=== PATIENT | male | born 1985 | race American Indian/Alaskan Native ===

== ENCOUNTER 2018-12-10 19:27 | Emergency (ER) | payer SELFPAY ==
[~2018-12-10] VITALS: Ht 172.7 cm; Wt 87.0 kg
[2018-12-10] MEDS ORDERED: D-ME473S8 MT (19:47)
[2018-12-10] MEDS ORDERED: AM500 PO (19:48)
[2018-12-10] MEDS ORDERED: LORA10TA7 PO (19:48)
[2018-12-10] MEDS ORDERED: PSEU-207 PO (19:48)
[2018-12-10] MEDS ORDERED: GUAI120017 PO (19:49)
[2018-12-10] MEDS ORDERED: IBUP-2029 PO (19:49)
[2018-12-10] MEDS ORDERED: ALBUTEROL (0.083%) 2.5MG/3ML NEB HHN STA (23:17)
[2018-12-10] MEDS ORDERED: IPRATROPIUM BROMIDE (0.02%) 0.5MG/2.5ML NEB HHN STA (23:17)
[2018-12-10] MEDS ORDERED: ACETAMINOPHEN 325MG TABLET PO STA (23:32)
[2018-12-11] MEDS ORDERED: METHYLPREDNISOLONE SOD SUCC 125 MG/2 ML VIAL IM NR (00:45)
[2018-12-11 01:27] VITALS: BP 147/102
== END 2018-12-11 01:44 | disposition home or self-care (01) ==
LOC: ER 20:07
DX: J20.9 Acute bronchitis, unspecified (principal); F12.90 Cannabis use, unspecified, uncomplicated
CPT/HCPCS: 71045; 94640; 96372; 99283; J2930; J7611; Z7610

== ENCOUNTER 2019-07-23 18:29 | Emergency (ER) | payer MEDICAID ==
[~2019-07-23] VITALS: Ht 172.7 cm; Wt 85.0 kg
[~2019-07-23 18:29] MED LIST: AMOX-494 PO; D-ME473S8 MT; GUAI120017 PO; IBUP-2029 PO; LORA10TA7 PO; PSEU-207 PO
[2019-07-23] MEDS ORDERED: HYDROCODONE/APAP 7.5/325MG 1 TAB TABLET PO ONE (22:00)
[2019-07-23] MEDS ORDERED: IBUPROFEN 800MG TABLET PO ONE (22:00)
[2019-07-23 23:59] VITALS: BP 122/81
== END 2019-07-23 23:59 | disposition home or self-care (01) ==
LOC: ER 18:29
DX: S62.396A Other fracture of fifth metacarpal bone, right hand, initial encounter for closed fracture (principal); Y93.73 Activity, racquet and hand sports; Y92.838 Other recreation area as the place of occurrence of the external cause
CPT/HCPCS: 29515; 73630; 99283; Z7610

== ENCOUNTER 2019-07-25 15:30 | Emergency (ER) | payer MEDICAID ==
[~2019-07-25] VITALS: Ht 172.7 cm; Wt 84.0 kg
[2019-07-25] MEDS ORDERED: HYDROCODONE/ACETAMINOPHEN 5/325MG TABLET PO ONE (17:00)
[2019-07-25 17:33] VITALS: BP 154/88
== END 2019-07-25 17:36 | disposition home or self-care (01) ==
LOC: ER 15:30
DX: Z48.00 Encounter for change or removal of nonsurgical wound dressing (principal); S92.301D Fracture of unspecified metatarsal bone(s), right foot, subsequent encounter for fracture with routine healing; I10 Essential (primary) hypertension; X58.XXXD Exposure to other specified factors, subsequent encounter
CPT/HCPCS: 29515; 99283

== ENCOUNTER 2019-09-16 19:11 | Emergency (ER) | payer MEDICAID ==
[~2019-09-16] VITALS: Ht 172.7 cm; Wt 75.0 kg
[2019-09-16] MEDS ORDERED: IPRATROPIUM BROMIDE (0.02%) 0.5MG/2.5ML NEB HHN STA (20:21)
[2019-09-16] MEDS ORDERED: ALBUTEROL (0.083%) 2.5MG/3ML NEB HHN STA (20:21)
[2019-09-16] MEDS ORDERED: ACETAMINOPHEN 325MG TABLET PO STA (22:02)
[2019-09-16] MEDS ORDERED: PREDNISONE 20MG TABLET PO STA (22:02)
[2019-09-16 22:21] VITALS: BP 143/97
== END 2019-09-16 22:25 | disposition home or self-care (01) ==
LOC: ER 19:11
DX: J45.901 Unspecified asthma with (acute) exacerbation (principal); F12.10 Cannabis abuse, uncomplicated; I10 Essential (primary) hypertension; Z79.899 Other long term (current) drug therapy
CPT/HCPCS: 71045; 94640; 99283; J7512; Z7610

== ENCOUNTER 2019-11-11 14:28 | Emergency (ER) | payer MEDICAID ==
[~2019-11-11] VITALS: Ht 170.2 cm; Wt 80.9 kg
[2019-11-11] MEDS ORDERED: ALBUTEROL (0.083%) 2.5MG/3ML NEB HHN STA (15:35)
[2019-11-11] MEDS ORDERED: PREDNISONE 20MG TABLET PO STA (15:35)
[2019-11-11] MEDS ORDERED: IPRATROPIUM BROMIDE (0.02%) 0.5MG/2.5ML NEB HHN STA (15:35)
[2019-11-11 16:41] VITALS: BP 133/78
== END 2019-11-11 16:43 | disposition home or self-care (01) ==
LOC: ER 14:28
DX: J45.901 Unspecified asthma with (acute) exacerbation (principal); F12.10 Cannabis abuse, uncomplicated; Z79.899 Other long term (current) drug therapy
CPT/HCPCS: 71045; 93005; 94640; 99283; J7512; Z7610

== ENCOUNTER 2019-12-10 09:34 | Emergency (ER) | payer MEDICAID ==
[~2019-12-10] VITALS: Ht 165.1 cm; Wt 72.0 kg
[2019-12-10] MEDS ORDERED: METHYLPREDNISOLONE SOD SUCC 125 MG/2 ML VIAL IV STA (09:58)
[2019-12-10] MEDS ORDERED: PREDNISONE 20MG TABLET PO STA (09:58)
[2019-12-10] MEDS ORDERED: ALBUTEROL (0.083%) 2.5MG/3ML NEB HHN STA (09:58)
[2019-12-10] MEDS ORDERED: IPRATROPIUM BROMIDE (0.02%) 0.5MG/2.5ML NEB HHN STA (09:58)
[2019-12-10 12:00] VITALS: BP 128/98
== END 2019-12-10 12:12 | disposition home or self-care (01) ==
LOC: ER 09:34
DX: J45.909 Unspecified asthma, uncomplicated (principal); Z79.899 Other long term (current) drug therapy
CPT/HCPCS: 71045; 94644; 99285; J7512; Z7610; J2930

== ENCOUNTER 2020-09-28 10:21 | Emergency (ER) | payer MEDICAID ==
[~2020-09-28] VITALS: Ht 172.7 cm; Wt 91.0 kg
[2020-09-28] MEDS ORDERED: ALBUTEROL (0.083%) 2.5MG/3ML NEB HHN STA (10:41)
[2020-09-28] MEDS ORDERED: PREDNISONE 20MG TABLET PO STA (10:41)
[2020-09-28] MEDS ORDERED: IPRATROPIUM BROMIDE (0.02%) 0.5MG/2.5ML NEB HHN STA (10:41)
[2020-09-28] MEDS ORDERED: P20 PO ×2 (11:07→11:36)
[2020-09-28 11:41] VITALS: BP 149/88
== END 2020-09-28 11:42 | disposition home or self-care (01) ==
LOC: ER 10:35
DX: J45.901 Unspecified asthma with (acute) exacerbation (principal); F41.9 Anxiety disorder, unspecified; J45.909 Unspecified asthma, uncomplicated; Z79.899 Other long term (current) drug therapy
CPT/HCPCS: 94640; 99283; J7512; Z7610

== ENCOUNTER 2020-10-04 19:01 | Emergency (ER) | payer MEDICAID ==
[~2020-10-04] VITALS: Ht 172.7 cm; Wt 90.0 kg
[~2020-10-04 19:01] MED LIST changes: +P20 PO
[2020-10-04 19:02] VITALS: BP 148/84
[2020-10-04] MEDS ORDERED: ALBUTEROL (0.083%) 2.5MG/3ML NEB HHN ONE (19:45)
[2020-10-04] MEDS ORDERED: IPRATROPIUM BROMIDE (0.02%) 0.5MG/2.5ML NEB HHN ONE (19:45)
[2020-10-04] MEDS ORDERED: PREDNISONE 20MG TABLET PO ONE (19:45)
[2020-10-04] MEDS ORDERED: P20 MT (20:42)
[2020-10-04] MEDS ORDERED: ALBU6.7H9 INH (20:42)
[2020-10-04] MEDS ORDERED: IPRATROPIUM/ALBUTEROL 0.5-3(2.5)MG/3ML NEB HHN ONE (20:45)
== END 2020-10-04 20:57 | disposition home or self-care (01) ==
LOC: ER 19:01
DX: J45.901 Unspecified asthma with (acute) exacerbation (principal); F41.9 Anxiety disorder, unspecified; Z79.899 Other long term (current) drug therapy
CPT/HCPCS: 71045; 94640; 99284; J7512; Z7610

== ENCOUNTER 2020-11-10 12:41 | Emergency (ER) | payer MEDICAID ==
[~2020-11-10] VITALS: Ht 165.1 cm; Wt 78.0 kg
[~2020-11-10 12:41] MED LIST changes: +ALBU6.7H9 INH; +P20 MT
[2020-11-10] MEDS ORDERED: IPRATROPIUM/ALBUTEROL 0.5-3(2.5)MG/3ML NEB HHN ONE (14:15)
[2020-11-10] MEDS ORDERED: PREDNISONE 20MG TABLET PO ONE (14:15)
[2020-11-10] MEDS ORDERED: DEXAMETHASONE 10 MG/ML VIAL IM ONE (14:15)
[2020-11-10] MEDS ORDERED: P20 MT (15:45)
[2020-11-10 15:53] VITALS: BP 130/89
== END 2020-11-10 15:59 | disposition home or self-care (01) ==
LOC: ER 12:41
DX: J45.901 Unspecified asthma with (acute) exacerbation (principal); Z79.51 Long term (current) use of inhaled steroids
CPT/HCPCS: 99283; J7512; Z7610

== ENCOUNTER 2021-04-03 16:30 | Emergency (ER) | payer MEDICAID ==
[~2021-04-03] VITALS: Ht 172.7 cm; Wt 93.0 kg
[2021-04-03 16:38] VITALS: BP 148/107
[2021-04-03] MEDS ORDERED: PREDNISONE 20MG TABLET PO STA (16:50)
[2021-04-03] MEDS ORDERED: ALBUTEROL (0.083%) 2.5MG/3ML NEB HHN STA (16:50)
[2021-04-03] MEDS ORDERED: IPRATROPIUM BROMIDE (0.02%) 0.5MG/2.5ML NEB HHN STA (16:50)
[2021-04-03] MEDS ORDERED: P20 MT (18:48)
== END 2021-04-03 18:57 | disposition home or self-care (01) ==
LOC: ER 16:30
DX: J45.901 Unspecified asthma with (acute) exacerbation (principal); Z79.899 Other long term (current) drug therapy
CPT/HCPCS: 93005; 94640; 99283; J7512; Z7610

== ENCOUNTER 2021-07-15 15:11 | Emergency (ER) | payer MEDICAID, OTHER ==
[~2021-07-15] VITALS: Ht 172.7 cm; Wt 91.0 kg
[2021-07-15 15:25] VITALS: BP 145/102
[2021-07-15] MEDS ORDERED: P20 PO ×3 (16:28→17:37)
[2021-07-15] MEDS ORDERED: PREDNISONE 20MG TABLET PO ONE (16:30)
[2021-07-15] MEDS ORDERED: ALBUTEROL (0.083%) 2.5MG/3ML NEB HHN ONE ×2 (16:30→17:45)
== END 2021-07-15 18:01 | disposition home or self-care (01) ==
LOC: ER 15:11
DX: J45.901 Unspecified asthma with (acute) exacerbation (principal); F41.9 Anxiety disorder, unspecified
CPT/HCPCS: 93005; 94640; 99284; J7512; Z7610

== ENCOUNTER 2021-08-23 22:20 | Emergency (ER) | payer MEDICAID, OTHER ==
[~2021-08-23] VITALS: Ht 172.7 cm; Wt 98.0 kg
[2021-08-23] MEDS ORDERED: ALBUTEROL (0.083%) 2.5MG/3ML NEB HHN ONE (23:15)
[2021-08-23] MEDS ORDERED: PREDNISONE 20MG TABLET PO ONE (23:15)
[2021-08-24] MEDS ORDERED: ALBUTEROL (0.083%) 2.5MG/3ML NEB HHN ONE (01:30)
[2021-08-24] MEDS ORDERED: ALBU18HF2 IH (01:38)
[2021-08-24] MEDS ORDERED: P20 PO (01:38)
[2021-08-24 02:10] VITALS: BP 130/90
== END 2021-08-24 02:20 | disposition home or self-care (01) ==
LOC: ER 22:20
DX: J45.901 Unspecified asthma with (acute) exacerbation (principal)
CPT/HCPCS: 93005; 94640; 99284; J7512; Z7610

== ENCOUNTER 2021-10-13 23:16 | Emergency (ER) | payer MEDICAID, OTHER ==
[~2021-10-13] VITALS: Ht 172.7 cm; Wt 96.1 kg
[~2021-10-13 23:16] MED LIST changes: +ALBU18HF2 IH
[2021-10-13 23:31] VITALS: BP 149/93
[2021-10-13] MEDS ORDERED: IPRATROPIUM BROMIDE (0.02%) 0.5MG/2.5ML NEB HHN STA (23:39)
[2021-10-13] MEDS ORDERED: ALBUTEROL (0.083%) 2.5MG/3ML NEB HHN STA (23:39)
[2021-10-13] MEDS ORDERED: PREDNISONE 20MG TABLET PO STA (23:39)
[2021-10-14] MEDS ORDERED: ALBU90AE INH (01:37)
[2021-10-14] MEDS ORDERED: P20 MT (01:37)
== END 2021-10-14 02:50 | disposition home or self-care (01) ==
LOC: ER 23:16
DX: J45.901 Unspecified asthma with (acute) exacerbation (principal); F17.200 Nicotine dependence, unspecified, uncomplicated; Z79.899 Other long term (current) drug therapy
CPT/HCPCS: 94640; 99283; J7512; Z7610

== ENCOUNTER 2021-12-23 23:22 | Emergency (ER) | payer MEDICAID, OTHER ==
[~2021-12-23] VITALS: Ht 172.7 cm; Wt 95.0 kg
[~2021-12-23 23:22] MED LIST changes: +ALBU90AE INH
[2021-12-23 23:31] VITALS: BP 125/97
[2021-12-24] MEDS ORDERED: IPRATROPIUM BROMIDE (0.02%) 0.5MG/2.5ML NEB HHN STA (02:55)
[2021-12-24] MEDS ORDERED: ALBUTEROL (0.083%) 2.5MG/3ML NEB HHN STA (02:55)
[2021-12-24] MEDS ORDERED: PREDNISONE 20MG TABLET PO ONE (03:00)
[2021-12-24] MEDS ORDERED: PRED10TA23 MT (03:41)
[2021-12-24] MEDS ORDERED: ALBU6.7H9 INH (03:41)
[2021-12-24] MEDS ORDERED: PRED5TAB48 MT (04:11)
== END 2021-12-24 04:43 | disposition home or self-care (01) ==
LOC: ER 23:22
DX: J45.901 Unspecified asthma with (acute) exacerbation (principal); F41.9 Anxiety disorder, unspecified
CPT/HCPCS: 94640; 99283; J7512; Z7610

== ENCOUNTER 2022-01-08 13:18 | Emergency (ER) | payer OTHER ==
[~2022-01-08] VITALS: Ht 172.7 cm; Wt 96.0 kg
[~2022-01-08 13:18] MED LIST changes: +PRED10TA23 MT; +PRED5TAB48 MT
[2022-01-08 13:23] VITALS: BP 166/111
[2022-01-08] MEDS ORDERED: PREDNISONE 20MG TABLET PO ONE (15:30)
[2022-01-08] MEDS ORDERED: IPRATROPIUM/ALBUTEROL 0.5-3(2.5)MG/3ML NEB HHN ONE (15:30)
[2022-01-08] MEDS ORDERED: P50 MT (16:50)
== END 2022-01-08 17:12 | disposition home or self-care (01) ==
LOC: ER 13:18
DX: J45.901 Unspecified asthma with (acute) exacerbation (principal); F41.9 Anxiety disorder, unspecified; J45.909 Unspecified asthma, uncomplicated; F17.290 Nicotine dependence, other tobacco product, uncomplicated; Z79.899 Other long term (current) drug therapy
CPT/HCPCS: 93005; 94640; 99283; J7512; Z7610

== ENCOUNTER 2022-02-02 20:52 | Emergency (ER) | payer OTHER ==
[~2022-02-02] VITALS: Ht 172.7 cm; Wt 92.5 kg
[~2022-02-02 20:52] MED LIST changes: +P50 MT
[2022-02-02] MEDS ORDERED: PREDNISONE 20MG TABLET PO ONE (23:45)
[2022-02-02] MEDS ORDERED: IPRATROPIUM/ALBUTEROL 0.5-3(2.5)MG/3ML NEB HHN ONE (23:45)
[2022-02-03] MEDS ORDERED: IPRATROPIUM/ALBUTEROL 0.5-3(2.5)MG/3ML NEB HHN ONE (00:45)
[2022-02-03] MEDS ORDERED: P50 MT (01:08)
[2022-02-03 01:44] VITALS: BP 151/83
== END 2022-02-03 01:45 | disposition home or self-care (01) ==
LOC: ER 20:52
DX: J45.901 Unspecified asthma with (acute) exacerbation (principal); F41.9 Anxiety disorder, unspecified; Z87.891 Personal history of nicotine dependence
CPT/HCPCS: 94640; 99284; J7512; Z7610

== ENCOUNTER 2022-03-16 04:39 | Emergency (ER) | payer MEDICAID, OTHER ==
[~2022-03-16] VITALS: Ht 172.7 cm; Wt 92.0 kg
[~2022-03-16 04:39] MED LIST changes: +ALBU6.7H3 INH; -ALBU6.7H9 INH
[2022-03-16] MEDS ORDERED: PREDNISONE 20MG TABLET PO STA (05:48)
[2022-03-16] MEDS ORDERED: IPRATROPIUM BROMIDE (0.02%) 0.5MG/2.5ML NEB HHN STA (05:48)
[2022-03-16] MEDS ORDERED: ALBUTEROL (0.083%) 2.5MG/3ML NEB HHN STA (05:48)
[2022-03-16 06:19] LABS: BASOPHILS % 0.8 % (0.0-2.0); EOSINOPHILS % 12.7 % (0.0-5.0); HEMATOCRIT. 48.5 % (42.0-52.0); HEMOGLOBIN. 16.5 g/dL (14.0-18.0); LYMPHOCYTES % 14.5 % (20.0-50.0); MEAN CORPUSCULAR HEMOGLOBIN 29.8 pg (28.0-32.0); MEAN CORPUSCULAR VOLUME 87.7 fL (80.0-94.0); MEAN PLATELET VOLUME 7.8 fl (7.4-10.4); MONOCYTES % 2.5 % (2.0-8.0); NEUTROPHILS % 69.5 % (40.0-76.0); PLATELET 320 x1000/uL (130-400); RED BLOOD CELL COUNT 5.53 mill/uL (4.7-6.1); RED CELL DISTRIBUTION WIDTH 14.3 % (11.6-14.6)
[2022-03-16 06:42] LABS: CHLORIDE 104 mEq/L (98-107)
[2022-03-16] MEDS ORDERED: ALBU6.7H3 INH (07:32)
[2022-03-16] MEDS ORDERED: FLUT1DIS3 INH (07:32)
[2022-03-16] MEDS ORDERED: MED4 MT (07:32)
[2022-03-16 07:50] VITALS: BP 132/66
== END 2022-03-16 07:55 | disposition home or self-care (01) ==
LOC: ER 04:39
DX: J45.909 Unspecified asthma, uncomplicated (principal); Z79.899 Other long term (current) drug therapy
CPT/HCPCS: 36415; 71045; 80053; 83880; 85025; 94640; 99283; J7512; Z7610